=== PATIENT | male | born 1940 | race African-American/Black ===

== ENCOUNTER 2016-05-02 13:44 | Emergency (ER) | payer SELFPAY ==
[~2016-05-02] VITALS: Ht 180.3 cm; Wt 83.5 kg
[2016-05-02 14:09] VITALS: BP 157/109
== END 2016-05-02 14:15 | disposition left against medical advice (07) ==
LOC: ER 13:53
DX: R10.9 Unspecified abdominal pain (principal); Z53.21 Procedure and treatment not carried out due to patient leaving prior to being seen by health care provider
CPT/HCPCS: 93005